=== PATIENT | male | born 1950 | race Caucasian/White ===

== ENCOUNTER 2020-04-10 11:58 | Observation (INO) ==
[~2020-04-10 11:58] MED LIST: Acetaminophen IV 1 GM/100ML 100 ML ONE; Buffered Lidocaine 1% SYRIN 1 ml INTRADERM ONE; Lactated Ringers 1000 ml BAG 1,000 ML IV SCH; Propofol 10 mg/ml 100 ML BTL 100 ML ONE
[2020-04-10] MEDS ORDERED: ceFAZolin 2 GM PREMIX 2 GM/50 ML BAG ONE (12:14)
[2020-04-10] MEDS ORDERED: Buffered Lidocaine 1% SYRIN 1 ml INTRADERM ONE (12:14)
[2020-04-10] MEDS ORDERED: hydrALAZINE 20 mg/ml 1 ML Vial IV ONE ×2 (12:58→18:48)
[2020-04-10] MEDS ORDERED: fentaNYL 100 mcg/2 ml 50 MCG/ML VIAL ONE (13:48)
[2020-04-10] MEDS ORDERED: ROPIVACAINE 5 MG/ML 30 ML BTL (0.5%) ONE ×2 (14:04→16:12)
[2020-04-10] MEDS ORDERED: Midazolam 2 mg/2 ml VIAL 1 mg/ml 2 ml VIAL (2 mg) ONE ×2 (14:05→14:24)
[2020-04-10] MEDS ORDERED: Bupivacaine 0.5% SDV PF 30ML VIAL ONE (14:28)
[2020-04-10] MEDS ORDERED: fentaNYL 100 mcg/2 ml 50 MCG/ML VIAL IV PRN (14:31)
[2020-04-10] MEDS ORDERED: Naloxone 0.4 mg VIAL 0.4 mg/ml 1 ml VIAL IV PRN (14:31)
[2020-04-10] MEDS ORDERED: diPHENhydraMINE IV 50 MG/ML 1 ml VIAL (BENADRYL) IV PRN (15:52)
[2020-04-10] MEDS ORDERED: diPHENhydraMINE 25 mg TAB PO PRN (15:52)
[2020-04-10] MEDS ORDERED: Magnesium Hydroxide LIQ 30 ML UDC PO PRN (15:52)
[2020-04-10] MEDS ORDERED: Lactulose 30 ml UDC PO PRN (15:52)
[2020-04-10] MEDS ORDERED: Ondansetron 4 mg VIAL 2 MG/ML 2 ml VIAL IV PRN (15:52)
[2020-04-10] MEDS ORDERED: Ondansetron ODT 4 mg TAB 4 MG TAB PO PRN (15:52)
[2020-04-10] MEDS ORDERED: oxyCODONE/Acetamin 5/325 mg TAB ONE (18:14)
[2020-04-10] MEDS: oxyCODONE/Acetamin 5/325 mg TAB PO PRN ×2 (18:24→22:31)
[2020-04-10] MEDS: Lactated Ringers 1000 ml BAG 1,000 ML IV SCH (20:46)
[2020-04-10] MEDS: ceFAZolin 1 GM ADVAN 1 GM in NS 0.9% 50 ML 50 ML IVPB SCH (22:30)
[2020-04-10] MEDS: Magnesium Hydroxide LIQ 30 ML UDC PO SCH (22:31)
[2020-04-10] MEDS: Morphine 2 MG/ML SYRINGE IV PRN (23:54)
[2020-04-11] MEDS: oxyCODONE/Acetamin 5/325 mg TAB PO PRN ×2 (02:29→06:20)
[2020-04-11] MEDS: Morphine 2 MG/ML SYRINGE IV PRN (04:33)
[2020-04-11] MEDS: ceFAZolin 1 GM ADVAN 1 GM in NS 0.9% 50 ML 50 ML IVPB SCH ×2 (06:21→12:18)
[2020-04-11 07:13] LABS: Hematocrit 31 % (42-52); Hemoglobin 11.2 g/dL (14.0-18.0); Mean Platelet Volume 7.6 fL (7.4-10.4); Platelet Count 207 10^3/uL (150-450)
[2020-04-11] MEDS: Lactated Ringers 1000 ml BAG 1,000 ML IV SCH (07:28)
[2020-04-11 07:30] LABS: BUN/Creatinine Ratio 15.3 (8-20); Calcium 8.6 mg/dL (8.6-10.3); EGFR African American 131.4 (>60); EGFR Non-African American 108.6 (>60); Potassium 3.6 mmol/L (3.5-5.0)
[2020-04-11] MEDS: Magnesium Hydroxide LIQ 30 ML UDC PO SCH (08:58)
[2020-04-11] MEDS ORDERED: Vitamin THERAPEUTIC TAB PO SCH (09:00)
[2020-04-11] MEDS ORDERED: Calcium/Vitamin D TAB 250/125 TAB PO SCH (09:00)
[2020-04-11 11:24] VITALS: BP 148/88
== END 2020-04-11 13:24 | disposition home or self-care (01) ==
LOC: OR 11:58 → SSU 15:53 → INTOOBSV 15:53
PROVIDERS: ADMIT Physician Assistant; ATTEND Orthopaedic Surgery Adult Reconstructive Orthopaedic Surgery